=== PATIENT | male | born 1960 | race Caucasian/White ===

== ENCOUNTER 2022-11-22 13:11 | Outpatient (AMB) | payer OTHER, SELFPAY ==
--- NOTE | 2022-11-22 13:15 | MHC.OFFVIS ---
Intake Vital Signs 11/22/22 13:27 Height 6 ft 1 in Weight 256 lb BMI 33.8 BP 175/104 H Blood Pressure Location Lt brachial Position Sitting Pulse 84 Intake Visit Reasons: H Intake Note: Patient is seen in office for evaluation and treatment of a left inguinal hernia repair. Patient c/o: onset 4 months, feel a lump on the left groin, admits to discomfort and pain, denies diarrhea, constipation, nausea, vomit Relationship Management Lead Required: No Accompanied by: Self / Same As Patient Allergies No Known Allergies Allergy (Verified 11/22/22 13:26) Medication List - Last Reconciled 11/22/22 by Toni Liao MD atorvastatin 20 mg PO DAILY oxycodone ER (OxyContin) 80 mg PO TID HPI HPI Comments History of Present Illness Details 62-year-old male patient presenting with complaints of a lump in the left groin. He is uncertain how long list hernias been present but feels it has increased in size over the last 4 months. He denies associated nausea, vomiting, fever, chills, diarrhea, constipation or other associated symptoms. He reports a previous right inguinal hernia which was repaired approximately [address] [facility]. She denies any problems following the surgery. He also reports being on chronic pain medication for herniated disc, controlled by his primary care physician. The hernia is able to be reduced with light pressure or while in the supine position. Denies a history of incarceration of the hernia. [facility] Medical History (Updated 11/22/22 @ 13:42 by Toni Liao MD) Chronic pain Lumbar herniated disc Surgical History (Updated 11/22/22 @ 13:24 by DOLLY Linares) H/O right inguinal hernia repair Social History (Updated 11/22/22 @ 13:24 by DOLLY Linares) Alcohol intake: current Alcohol intake frequency: holidays/special occasions only Patient Tobacco Use Status: Never used Tobacco Review of Systems Const All systems reviewed & are unremarkable except as noted in HPI and below Denies chills, Denies fever(s), Denies headache(s), Denies poor appetite and Denies weakness ENT Denies headache(s) Card Denies chest pain, Denies irregular heart rhythm, Denies palpitations and Denies dyspnea Resp Denies cough, Denies excessive phlegm production and Denies dyspnea GI Reports as per HPI, Reports abdominal pain, Denies bloating, Denies change in bowel habits, Denies constipation, Denies heartburn, Denies diarrhea, Denies nausea and Denies vomiting Denies difficulty urinating and Denies urinary frequency Musc Reports back pain, Denies muscle weakness and Denies numbness Skin/Breast Denies changing lesions and Denies unusual bruising Neuro Denies headache(s), Denies numbness, Denies paresthesias and Denies weakness Psych Denies anxiety and Denies depression Endo Denies palpitations Shahab/Lymph Denies lymphadenopathy Physical Exam Const General: cooperative and no acute distress Nutritional Appearance: well nourished Orientation/consciousness: patient oriented x3 Limitations: no limitations HEENT Head: Yes normocephalic and Yes atraumatic Ears: hearing grossly normal bilaterally Resp Effort & Inspection: normal respiratory effort, no audible wheezes, no cough and no respiratory distress Cardio Jugular venous distension: no JVD GI Inspection: Yes normal to inspection and Yes Abdominal panniculus present Palpation (GI): Soft to palpation, nontender, no guarding, not rigid and Hernia present direct inguinal (Reducible left inguinal hernia) on the left Skin Other: Warm, dry, no rash Neuro General: patient oriented x3 Extrem General: Yes no clubbing, cyanosis or edema Assessment & Plan Assessment & Plan (1) Left inguinal hernia: Code(s): K40.90 - Unilateral inguinal hernia, without obstruction or gangrene, not specified as recurrent Plan 62-year-old male patient presenting with a large left inguinal hernia which is now symptomatic. I recommended a repair with mesh to be performed as a short-stay surgery. After review of the procedure, risks, and alternatives, he consents to a repair of the left inguinal hernia with mesh. I recommended no lifting greater than 10 lb for the 1st 4 weeks after the surgery. After 2 weeks he may be able to perform some light duty activity at work. Coding Level of Care Code New Pt Level 4 (45754) Diagnoses Left inguinal hernia K40.90
[2022-11-22 13:27] VITALS: BP 175/104; PULSE 84; BMI 33.8
== END 2022-11-22 13:37 | disposition home or self-care (01) ==
PROVIDERS: PCP Internal Medicine; Referring Provider Internal Medicine; Visit Provider Surgery
DX: K40.90 Unilateral inguinal hernia, without obstruction or gangrene, not specified as recurrent (principal)
CPT/HCPCS: 99204

== ENCOUNTER → 2022-11-22 13:11 | Outpatient (BNVA) | payer OTHER, SELFPAY | PROVIDERS: PCP Internal Medicine; Referring Provider Internal Medicine; Visit Provider Surgery | DX: K40.90 Unilateral inguinal hernia, without obstruction or gangrene, not specified as recurrent (principal) | CPT/HCPCS: 99202 ==

== ENCOUNTER 2022-12-12 07:31 | Day surgery (SDC) | payer OTHER, SELFPAY ==
[2022-12-07 07:15] VITALS: BMI 33.8
[2022-12-12] VITALS (7 sets, daily range): BP systolic 117–171; BP diastolic 78–99; PULSE 67–73; RESP 11–16; TEMP 36.1–36.3; O2SAT 90–97
--- NOTE | 2022-12-12 07:48 | HO.ANESPROP2 ---
Documented by User: Martha Vargas MD 12/12/22 07:50 [facility] Active Problems Active Problems: All Active Problems (Updated 12/07/22 @ 07:[address] RN) Left inguinal hernia (Acute) Lumbar herniated disc (Acute) Chronic pain (Acute) Past Medical History Medical History Bursitis Back pain Persistent insomnia Major depressive disorder Hyperlipidemia Chronic pain Lumbar herniated disc Surgical History Surgical History H/O right inguinal hernia repair Social History Social History Alcohol intake: current Alcohol intake frequency: holidays/special occasions only Patient Tobacco Use Status: Never used Tobacco Second Hand Smoke Exposure: No Use of substances other than those prescribed or required for medical reasons: Yes Are you DNR?: No Advance Directives: No Advance Directives Information Provided: Yes Advance Directives on File: No Meds Allergies Allergy/AdvReac Type Severity Reaction Status Date / Time No Known Allergies Allergy Verified 11/22/22 13:26 Home Medications Medication Instructions Recorded Confirmed Last Taken Type atorvastatin 20 mg tablet 20 mg PO DAILY 11/22/22 11/22/22 Unknown History oxycodone 80 mg tablet,crush 80 mg PO TID 11/22/22 11/22/22 Unknown History resistant,extended release 12 hr (OxyContin) Exam Exam Date and Time: December 12, 2022 0748 Height,Weight and Vital Signs: Height 6 ft 1 in Weight 116.12 kg Airway Neck ROM: Limited Documented by User: Justus Montana MD 12/12/22 09:08 [facility] Past Medical History Medical History Bursitis Back pain Persistent insomnia Major depressive disorder Hyperlipidemia Chronic pain Lumbar herniated disc Family History Family history of problems with anesthesia: No Surgical History Surgical History H/O right inguinal hernia repair History of Problems with Anesthesia: No Social History Social History Alcohol intake: current Alcohol intake frequency: holidays/special occasions only Patient Tobacco Use Status: Never used Tobacco Second Hand Smoke Exposure: No Use of substances other than those prescribed or required for medical reasons: Yes Are you DNR?: No Advance Directives: No Advance Directives Information Provided: Yes Advance Directives on File: No Meds Allergies Allergy/AdvReac Type Severity Reaction Status Date / Time No Known Allergies Allergy Verified 11/22/22 13:26 Home Medications Medication Instructions Recorded Confirmed Last Taken Type atorvastatin 20 mg tablet 20 mg PO DAILY 11/22/22 11/22/22 Unknown History oxycodone 80 mg tablet,crush 80 mg PO TID 11/22/22 11/22/22 Unknown History resistant,extended release 12 hr (OxyContin) Exam Airway Mallampati Class: II TM Dist: >3cm Heart: rrr Lungs: cta Assessment and Plan Assessment Anesthesia Assessment: Anesthesia Plan Discussed and Chart Reviewed Final Anesthetic Review Family History of Problems with Anesthesia: No History of Problems with Anesthesia: No NPO: Yes ASA Class: III Final Preanesthetic Review: No Changes in Pt Med Stat, Meds/Allgs Chart Reviewed, Consent Obtained/Reviewed and Anes Risks/Benef Reviewed Patient Risk: Intermediate Procedure Risk: Intermediate Anesthetic Plan Anesthetic Plan: Agree w/ Assess. and Plan Disposition: Standard PACU
[2022-12-12] MEDS: Lactated Ringers 1,000 ML 100 ML IVCONT (08:34)
--- NOTE | 2022-12-12 09:36 | MHC.SHP ---
Pre-Procedural Eval Section A Date of Service: 12/12/22 The patient is an INPATIENT: No Changes since office visit: Yes Patient answered all questions; No Cold of Flu in the past 2 weeks, No New Medical Problems and No Changes in Medication The History & Physical has been completed within 30 days and I have reviewed it.: Yes Section B Chief Complaint: Unilateral inguinal hernia, without obstruction Allergies: Allergies Allergy/AdvReac Type Severity Reaction Status Date / Time No Known Allergies Allergy Verified 11/22/22 13:26 Plan Diagnosis/Plan: Unchanged I have reviewed the history and physical and performed a pertinent physical examination on my patient. No changes have occurred unless specified. Time Spent With Patient Time: Total time managing care of this patient today ____ minutes.
--- NOTE | 2022-12-12 09:36 | W.PM.OPN ---
Operative Note Operative Note Date of Service: 12/12/22 Narrative: Preoperative diagnosis: Left inguinal hernia Postoperative diagnosis: same Procedure: repair of left inguinal hernia with mesh Surgeon: Toni Liao MD Instructional Designer: Diane Vargas PA-C Anesthesia: general LMA Indications for procedure: 62-year-old male patient presenting with a new left inguinal hernia and a previous history of right inguinal hernia repaired an outside institution. On examination patient found to have a lump in the left groin which increases with Valsalva maneuvers. Operative findings: Large indirect left inguinal hernia Specimen: hernia sac Estimated blood loss: 10 mL Complications: none Procedure details: patient was brought to the OR and placed in a supine position. After administering general anesthesia patient's abdomen was prepped with ChloraPrep and draped in a sterile fashion. A surgical time-out was called the consent confirmed. Patient received preoperative antibiotics and Venodyne boots were in place. Local anesthesia was infiltrated over the left inguinal ligament. Incision was then made parallel to the inguinal ligament. This carried out through subcutaneous tissue, past Cristina's fashion up to the external oblique aponeurosis. Additional local was placed below the external oblique aponeurosis. This was then incised with a scalpel wider with the Metzenbaum scissors. The spermatic cord was then dissected free from the surrounding well canal. This was retracted using a Troy drain. The floor of the inguinal canals found to be intact. Fibers of the cremaster muscle were then and a large hernia sac identified. This Was dissected down to the internal ring. the sac was opened and the contents reduced. Sac was then ligated above the internal ring and divided. This was sent as a specimen to pathology. Attention was then directed to the floor of the inguinal canal. Fibers of the internal oblique and transversalis aponeurosis were then incised between Allis clamps. The preperitoneal space was then entered. This was then widened using an open Ray-Catia sponge. A large extended PHS mesh was then obtained. This was deployed within the preperitoneal space. The overlay was then secured to the pubic tubercle, conjoined tendon, and shelving edge of the inguinal ligament using is 0 Polysorb suture. A slit was made in the mesh and the mesh wrapped around the spermatic cord at the internal ring. It was then secured to the shelving edge using the 0 Polysorb suture. Wounds were then irrigated with saline solution and suctioned dry. Hemostasis was assured using electrocautery. External oblique aponeurosis was then closed using a running 2-0 Polysorb suture. 6 mL of Zenrelef was then infiltrated below the external oblique aponeurosis. Cristina's fascia and dermis were then reapproximated using interrupted 3-0 Polysorb sutures. Skin was closed using a running subcuticular 4-0 Polysorb suture. Sterile dressings consisting of Steri-Strips, 2 x 2 gauze and Tegaderm were then applied. The patient tolerated the procedure well. Sponge, instrument, needle counts reported as correct. Patient was transferred to PACU in stable condition.
== END 2022-12-12 12:39 | disposition home or self-care (01) ==
PROVIDERS: PCP Internal Medicine; Visit Provider Surgery
PROC: (CPT 49505; principal; 2022-12-12 09:10)
DX: K40.90 Unilateral inguinal hernia, without obstruction or gangrene, not specified as recurrent (principal); G89.29 Other chronic pain; M51.26 Other intervertebral disc displacement, lumbar region; Z98.890 Other specified postprocedural states; Z79.899 Other long term (current) drug therapy
CPT/HCPCS: 49505; 88302; C1781; C9088; J0690; J2250; J3010

== ENCOUNTER → 2022-12-12 07:31 | Outpatient (BNV) | payer OTHER, SELFPAY | PROVIDERS: PCP Internal Medicine; Visit Provider Surgery | DX: K40.90 Unilateral inguinal hernia, without obstruction or gangrene, not specified as recurrent (principal) | CPT/HCPCS: 49505 ==

== ENCOUNTER 2022-12-22 10:03 | Outpatient (AMB) | payer OTHER, SELFPAY ==
--- NOTE | 2022-12-22 10:05 | MHC.OFFVIS ---
Intake Vital Signs 12/22/22 10:13 Height 6 ft 1 in Weight 250 lb BMI 33.0 BP 133/88 Blood Pressure Location Lt brachial Position Sitting Intake Visit Reasons: S/P open LIH w/mesh Intake Note: Patient is seen in office for post op assessment post left inguinal hernia repair. Patient c/o: sore and tender for the first couple of days, no concerns at the time of visit Award Clerk Required: No Accompanied by: Self / Same As Patient Allergies No Known Allergies Allergy (Verified 12/22/22 10:12) HPI HPI Comments History of Present Illness Details 62-year-old male patient returning 1 week following repair of a left inguinal hernia with mesh 12/12/2022. He feels well and denies any ongoing symptoms of nausea, vomiting, diarrhea or constipation. He notes some swelling and soreness at the incision but generally this is much improved from prior to the surgery. [facility] Medical History Bursitis Back pain Persistent insomnia Major depressive disorder Hyperlipidemia Chronic pain Lumbar herniated disc Surgical History History of left inguinal hernia repair (12/12/22) H/O right inguinal hernia repair Social History Alcohol intake: current Alcohol intake frequency: holidays/special occasions only Patient Tobacco Use Status: Never used Tobacco Second Hand Smoke Exposure: No Physical Exam Const General: healthy appearing Nutritional Appearance: well nourished Orientation/consciousness: patient oriented x3 Limitations: no limitations Resp Effort & Inspection: normal respiratory effort, no audible wheezes, no cough and no respiratory distress GI Other: Incision in the left groin is clean, dry, and intact without redness or discharge. There is some swelling extending down into the scrotum but no evidence of hematoma or seroma. Neuro General: patient oriented x3 Extrem General: Yes no clubbing, cyanosis or edema Assessment & Plan Assessment & Plan (1) Left inguinal hernia: Code(s): K40.90 - Unilateral inguinal hernia, without obstruction or gangrene, not specified as recurrent Plan Status post repair of a left inguinal hernia with mesh. He should avoid lifting greater than 10 lb and will return approximately 2 weeks for follow-up examination. Coding Level of Care Code Global (07710) Diagnoses Left inguinal hernia K40.90
[2022-12-22 10:13] VITALS: BP 133/88; BMI 33.0
== END 2022-12-22 10:23 | disposition home or self-care (01) ==
PROVIDERS: PCP Internal Medicine; Visit Provider Surgery
DX: K40.90 Unilateral inguinal hernia, without obstruction or gangrene, not specified as recurrent (principal)
CPT/HCPCS: 99024

== ENCOUNTER → 2022-12-22 10:03 | Outpatient (BNVA) | payer OTHER, SELFPAY | PROVIDERS: PCP Internal Medicine; Visit Provider Surgery ==

== ENCOUNTER 2023-01-03 13:56 | Outpatient (AMB) | payer OTHER, SELFPAY ==
--- NOTE | 2023-01-03 14:23 | MHC.OFFVIS ---
Intake Vital Signs 01/03/23 14:35 Height 6 ft 1 in Weight 255 lb BMI 33.6 BP 117/74 Blood Pressure Location Lt brachial Position Sitting Pulse 73 Intake Visit Reasons: 2 wk follow up open LIH w/mesh Intake Note: Patient is seen in office for 2 weeks follow up visit, post left inguinal hernia repair. Patient c/o: denies any concerns at the time of visit Director Of Counseling Required: No Accompanied by: Self / Same As Patient Allergies No Known Allergies Allergy (Verified 01/03/23 14:36) HPI HPI Comments History of Present Illness Details 62-year-old male patient returning 1 month following repair of a left inguinal hernia with mesh. He feels well and denies any ongoing incisional pain. He denies nausea, vomiting, fever or chills. PFSH Medical History Bursitis Back pain Persistent insomnia Major depressive disorder Hyperlipidemia Chronic pain Lumbar herniated disc Surgical History History of left inguinal hernia repair (12/12/22) H/O right inguinal hernia repair Social History Alcohol intake: current Alcohol intake frequency: holidays/special occasions only Patient Tobacco Use Status: Never used Tobacco Second Hand Smoke Exposure: No Physical Exam Vital Signs: Last Vital Signs Pulse 73 01/03/23 14:35 BP 117/74 01/03/23 14:35 BMI result Body Mass Index 33.6 Const General: healthy appearing Nutritional Appearance: well nourished Orientation/consciousness: patient oriented x3 Limitations: no limitations Resp Effort & Inspection: normal respiratory effort, no audible wheezes, no cough and no respiratory distress GI Other: Incision in the left groin is clean, dry, and intact without redness or discharge. No hernias noted with Valsalva maneuvers. Neuro General: patient oriented x3 Extrem General: Yes no clubbing, cyanosis or edema Assessment & Plan Assessment & Plan (1) Left inguinal hernia: Code(s): K40.90 - Unilateral inguinal hernia, without obstruction or gangrene, not specified as recurrent Plan Patient returns following repair of a left inguinal hernia with mesh. He tolerated the procedure well and his wounds are well healed. He should follow up as needed. He may resume normal activity without restrictions. Coding Level of Care Code Global (38391) Diagnoses Left inguinal hernia K40.90
[2023-01-03 14:35] VITALS: BP 117/74; PULSE 73; BMI 33.6
== END 2023-01-03 14:47 | disposition home or self-care (01) ==
PROVIDERS: PCP Internal Medicine; Visit Provider Surgery
DX: K40.90 Unilateral inguinal hernia, without obstruction or gangrene, not specified as recurrent (principal)
CPT/HCPCS: 99024

== ENCOUNTER → 2023-01-03 13:56 | Outpatient (BNVA) | payer OTHER, SELFPAY | PROVIDERS: PCP Internal Medicine; Visit Provider Surgery | DX: K40.90 Unilateral inguinal hernia, without obstruction or gangrene, not specified as recurrent (principal) ==

== ENCOUNTER 2023-05-23 12:19 | Outpatient (AMB) | payer OTHER, SELFPAY ==
--- NOTE | 2023-05-23 12:49 | A.OFFVIS_ITS ---
Intake Vital Signs 3 05/23/23 12:58 Height 6 ft 1 in Intake Visit Reasons: Skin mass of back Intake Note: Pt states he's had it about a year. 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 This is been present for several years and is gradually increasing in size. He denies any fever, chills, bleeding or discharge. He denies a previous history of infection. He is requesting excision of this lesion. [facility] Medical History Bursitis Back pain Persistent insomnia Major depressive disorder Hyperlipidemia Chronic pain Lumbar herniated disc Surgical History History of left inguinal hernia repair (12/12/22) H/O right inguinal hernia repair Social History Alcohol intake: current Alcohol intake frequency: holidays/special occasions only Patient Tobacco Use Status: Never used Tobacco Second Hand Smoke Exposure: No Review of Systems Const All systems reviewed & are unremarkable except as noted in HPI and below Physical Exam Const General: cooperative and no acute distress Nutritional Appearance: well nourished Orientation/consciousness: patient oriented x3 Limitations: no limitations HEENT Head: Yes normocephalic and Yes atraumatic Ears: hearing grossly normal bilaterally Resp Effort & Inspection: normal respiratory effort, no audible wheezes, no cough and no respiratory distress Cardio Jugular venous distension: no JVD GI Inspection: Yes normal to inspection Back/Spine/Pelvis Back/spine/pelvis image: 2 1. 3 cm epidermal inclusion cyst in the mid back with no evidence of infection. Skin Other: Warm, dry, no rash Neuro General: patient oriented x3 Extrem General: Yes no clubbing, cyanosis or edema Assessment & Plan Assessment & Plan (1) Epidermal inclusion cyst: Code(s): L72.0 - Epidermal cyst Plan 63-year-old male patient presenting with an enlarging epidermal inclusion cyst. On examination he has a 3 cm noninfected epidermal inclusion cyst in the mid back. I recommended an excision under local which could be performed in the office. After discussion of the procedure, risks, and alternatives, he consents to the surgery. Coding Level of Care Code New Pt Level 4 (04723) Diagnoses Epidermal inclusion cyst L72.0
[2023-05-23 12:58] VITALS: BP 124/70; PULSE 68; BMI 33.7
== END 2023-05-23 13:12 | disposition home or self-care (01) ==
PROVIDERS: PCP Internal Medicine; Visit Provider Surgery
DX: L72.0 Epidermal cyst (principal)
CPT/HCPCS: 99214

== ENCOUNTER → 2023-05-23 12:19 | Outpatient (BNVA) | payer OTHER, SELFPAY | PROVIDERS: PCP Internal Medicine; Visit Provider Surgery | DX: L72.0 Epidermal cyst (principal) | CPT/HCPCS: 99212 ==

== ENCOUNTER 2024-10-17 14:19 | Outpatient (AMB) | payer MEDICAID, SELFPAY ==
--- OUTSIDE RECORDS SUMMARY | 2024-10-17 14:26 | XMS_ITS | Data Portability ---
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 [address], [place], [address] , [facility] 6 06:36:42 Disorder of hair AND/OR hair follicle Completed 201301/27/2014 RECORDED 08/07/19 14 3:19PM BY PATRIZIA ARGUELLES MA, OFFICE VISIT Tirso Fisher MD [address] [address], [place], [address] , [facility] 6 06:36:42 Adult health examinat ion Completed 201301/27/2014 RECORDED 08/07/19 14 3:19PM BY PATRIZIA ARGUELLES MA, OFFICE VISIT Tirso Fisher MD [address] [address], [place], [address] , [facility] 6 06:36:42 Essentia l hyperten sharmin [id number] Completed 201301/27/2014 IMPRESSI ON: HE WAS GIVEN A HANDOUT ON HOW TO LOWER THE BLOOD PRESSURE . IF THIS IS ELEVATED NEXT VISIT WE WILL TALK ABOUT MEDS SINCE IT WOULD BE 3 TIMES IN A ROW.; RECORDED 08/07/19 14 4:11PM BY TIRSO ATKINSON MD, OFFICE VISIT Tirso Fisher MD [address] [address], [place], [address] , [facility] 6 06:36:42 Tobacco user [id number] Completed 201301/27/2014 RECORDED 10/03/19 14 2:00PM BY STEVEN MENDOZA I, OFFICE VISIT Tirso Fisher MD [address] [facility] [address], [place], [address] , [facility] 6 06:36:42 Blood chemistr y outside referenc e range [id number] Completed 201311/04/2013 RECORDED 10/03/19 14 2:00PM BY GURPREET HARRIS ON/PRASHANT Fisher MD [address] [address], [place], [address] , [facility] 6 06:36:42 Benign neoplasm of orophary nx 23286699 Completed 201311/04/2013 RECORDED 10/03/19 14 2:00PM BY GURPREET HARRIS ON/PRASHANT Fisher MD [address] [address], [place], [address] , [facility] 6 06:36:42 Impotenc e of organic origin Completed 201311/04/2013 RECORDED 10/03/19 14 2:00PM BY GURPREET HARRIS ON/PRASHANT Fisher MD [address] [address], [place], [address] , [facility] 6 06:36:42 Disorder of hair AND/OR hair follicle Completed 201311/04/2013 RECORDED 10/03/19 14 2:00PM BY GURPREET HARRIS ON/ADDEN DUM Tirso Fisher MD [address] [facility] [address], [place], [address] , [facility] 6 06:36:42 Adult health examinat ion Completed 201311/04/2013 RECORDED 10/03/19 14 2:00PM BY STEVEN MENDOZA I, ANNOTATI ON/ Tirso Fisher MD [address] [facility] [address], [place], [address] , [facility] 6 06:36:42 Essracheal l hyperten sharmin [id number] Completed 201311/04/2013 IMPRESSI ON: HE WAS GIVEN A HANDOUT ON HOW TO LOWER THE BLOOD PRESSURE . IF THIS IS ELEVATED NEXT VISIT WE WILL TALK ABOUT MEDS SINCE IT WOULD BE 3 TIMES IN A ROW.; RECORDED 10/03/19 14 8:48PM BY TIRSO ATKINSON MD, ANNOTATI ON/ Tirso Fisher MD [address] [facility] [address], [place], [address] , [facility] 6 06:36:42 Hyperlip idemia 82881658 Active 2016 Tirso Fisher MD [address] [facility] [address], [place], [address] , [facility] 2 14:23:51 Major depressi ve disorder 549174251 Active 2019 Not Available [facility] 1 10:09:32 Bursitis of olecrano n of left elbow 60569704164 9101 Active 2021 Tirso Fisher MD [address] [facility] [address], [place], [address] , [facility] 2 14:19:25 Left inguinal hernia 474500090 Active 2022 Tirso Fisher MD [address] [address], [place], [address] , [facility] 3 18:38:12 Epidermo id cyst 787202499 Active 2023 On back. Schedule d for surgery Tirso Fisher MD [address] [facility] [address], [facility] [place], [address] , [facility] 4 20:45:31 Problem Notes None recorded. Procedures Surgical History Date Name Laterality Status Provider Name and Address Organization Details Recorded Time 5 Chronic Pain Assessment completed Praveena Sesay MA [facility] 09/13/2024 10:25:48 5 Chronic Pain Assessment completed Kanchan Barragan MA [facility] 06/18/2024 14:11:53 5 Chronic Pain Assessment completed Kanchan Barragan MA [facility] 05/14/2024 13:48:02 4 Chronic Pain Assessment completed Praveena Sesay MA [facility] 02/15/2024 10:47:32 4 Chronic Pain Assessment completed Kanchan Barragan MA [facility] 11/08/2023 10:29:47 4 Chronic Pain Assessment cancelled Praveena Sesay MA [facility] 07/18/2023 13:55:25 4 Chronic Pain Assessment completed Jeanna Flores MA [facility] 04/19/2023 11:25:52 3 Chronic Pain Assessment completed Jeanna Flores MA [facility] 01/18/2023 13:31:14 3 repair of left inguinal hernia completed Araceli Lopez [facility] 12/13/2022 12:02:57 3 Chronic Pain Assessment completed Katina Kwon MA [facility] 10/19/2022 16:12:03 3 Chronic Pain Assessment completed Katina Kwon MA [facility] 06/08/2022 12:53:03 2 Chronic Pain Assessment completed Katina Kwon MA [facility] 02/07/2022 11:25:05 2 Chronic Pain Assessment completed Katina Kwon MA [facility] 11/24/2021 13:31:40 2 Chronic Pain Assessment completed Katina Kwon MA [facility] 08/09/2021 14:07:11 2 Chronic Pain Assessment completed Katina Kwon MA [facility] 05/11/2021 13:50:22 1 Chronic Pain Assessment completed Patrizia Arguelles MA [facility] 11/11/2020 14:14:12 1 Chronic Pain Assessment completed Praveena Sesay MA [facility] 05/12/2020 14:01:21 0 Chronic Pain Assessment completed Priti Marinelli MA [facility] 02/18/2020 13:33:18 0 Chronic Pain Assessment completed Steven Cunha [facility] 07/18/2019 09:25:48 0 Chronic Pain Assessment completed Steven Cunha [facility] 04/29/2019 13:30:08 9 Chronic Pain Assessment completed Steven Cunha [facility] 01/29/2019 13:51:27 9 Chronic Pain Assessment completed Steven Cunha [facility] 10/30/2018 13:47:40 9 Chronic Pain Assessment completed Steven Cunha [facility] 05/01/2018 10:10:45 8 Chronic Pain Assessment completed Steven Cunha [facility] 10/30/2017 10:32:32 8 Chronic Pain Assessment completed Steven Cunha [facility] 07/10/2017 09:10:58 8 Chronic Pain Assessment completed Steven Cunha [facility] 04/03/2017 13:14:28 7 Chronic Pain Assessment completed Steven Alphonse [facility] 01/03/2017 13:51:38 7 Chronic Pain Assessment completed Steven Bernabearchie [facility] 10/06/2016 10:36:29 7 Chronic Pain Assessment completed Devendrapierrekannan Puente [facility] 03/31/2016 11:41:46 6 Chronic Pain Assessment completed Praveena Sesay MA [facility] 10/01/2015 10:02:13 7 Rpr ing hernia init blocked completed Triny fuentes MA [facility] 10/01/2015 09:53:42 Imaging Results None recorded. Procedure Notes None recorded. Medical Equipment None Reported. Allergies No known drug allergies Medications Name Sig Start Date Stop Date Status Note LastModified by Organization Details LastModified Time simvastat in 40 mg tabs active Not Available Not Available Not Available Prescript ion - Prior Authoriza tion Request active Not Available Not Available Not Available oxycontin 80 mg t12a active Not Available Not Available Not Available fentanyl 50 mcg/hr transderm al patch Apply 1 patch every 72 hours by transder mal route for 30 days. 12/22 completed Not Available Not Available Not Available atorvasta tin 20 mg tablet TAKE 1 TABLET BY MOUTH EVERYDAY AT BEDTIME 2022 active Not Available Not Available Not Avai lable ibuprofen 200 mg capsule THREE TIMES DAILY, NEEDED 07/26 completed RECORDED 07/27/19 13 9:34AM BY TIRSO ATKINSON MD, MEDICATI ON AUTO-ZION CTIVATIO N; Not Available Not Available Not Available oxycodone ER 40 mg tablet,ex tended release,1 2 hr THREE TIMES DAILY 07/08 completed RECORDED 08/11/19 10 9:01AM BY TIRSO ATKINSON MD, MEDICATI ON AUTO-ZION CTIVATIO N;SCRIPT #3 OF 3; DO NOT FILL BEFORE 08/08/09 Not Available Not Available Not Available simvastat in 40 mg tablet Take 1 tablet every day by oral route for 90 days. 07/07 completed refill request Not Available Not Available Not Available oxycodone -acetamin ophen 5 mg-325 mg tablet DAILY PRN 05/25 completed RECORDED 06/27/19 12 10:55AM BY STEVEN MENDOZA I, MEDICATI ON AUTO-ZION CTIVATIO N; Not Available Not Available Not Available fentanyl 100 mcg/hr transderm al patch APPLY 1 PATCH TOPICALL Y EVERY 72 HOURS 12/22 completed Not Available Not Available Not Available morphine ER 60 mg tablet,ex tended release TAKE 1 TABLET BY MOUTH EVERY 12 HOURS FOR 30 DAYS 09/09 completed Not Available Not Available Not Available docusate sodium 100 mg capsule Take 1 capsule every day by oral route for 90 days, for constipa tion. 2024 active Not Available Not Available Not Avai lable gabapenti n 300 mg capsule Take 1 capsule every day by oral route at bedtime. 03/31 completed Not Available Not Available Not Available diclofena c sodium 75 mg tablet,de layed release TWO TIMES DAILY, NEEDED 02/17 completed RECORDED 04/23/19 14 8:39PM BY TIRSO ATKINSON MD, MEDICATI ON AUTO-ZION CTIVATIO N; Not Available Not Available Not Available OxyContin 80 mg tablet,ex tended release Take 1 tablet 3 times a day by oral route for 30 days. 02/26 completed Not Available Not Available Not Available Nasonex 50 mcg/actua tion [place] DAILY 09/21 completed RECORDED 12/04/19 10 10:13AM BY TIRSO ATKINSON MD, MEDICATI ON AUTO-ZION CTIVATIO N; Not Available Not Available Not Available dicloxaci llin 250 mg capsule DAILY 11/29 completed RECORDED 12/11/19 09 10:23AM BY TONYA Stark MD, MEDICATI ON AUTO-ZION CTIVATIO N; Not Available Not Available Not Available MS Contin 100 mg tablet,ex tended release THREE TIMES DAILY 07/04 completed RECORDED 07/30/19 14 3:25PM BY TIRSO ATKINSON MD, MEDICATI ON AUTO-ZION CTIVATIO N; Not Available Not Available Not Available mometason e 0.1 % topical cream TWO TIMES DAILY 2011 active RECORDED 10/03/19 14 2:00PM BY STEVEN MENDOZA I, OFFICE VISIT; Not Available Not Available Not Available albuterol (refill) 90 mcg/actua tion aerosol inhaler FOUR TIMES DAILY, NEEDED 10/14 completed RECORDED 12/04/19 10 10:13AM BY TIRSO ATKINSON MD, MEDICATI ON AUTO-ZION CTIVATIO N; Not Available Not Available Not Available oxycodone ER 60 mg tablet,ex tended release,1 2 hr THREE TIMES DAILY 05/02 completed RECORDED 05/02/19 14 11:30AM BY TIRSO ATKINSON MD, OFFICE VISIT;TH IS ORDER DISCONTI NUED PER [facility] N. Not Available Not Available Not Available oxycodone 10 mg tablet 8 tablets per day. 2 at the start of the day, 2 four hours later, then 1 every 4 hours. 07/08 completed [facility] left office before signing script and pt will be out of meds. Can you refill just the 1st script? Not Available Not Available Not Available OxyContin 80 mg tablet,cr ush resistant ,extended release Take 1 tablet twice a day by oral route for 30 days. 2024 active PA APPROVED FOR 09/03/24 - 5, NEEDS NEW PA Not Available Not Available Not Available Narcan 4 mg/actuat ion nasal spray one spray in one nostril, may repeat dose every 2-3min until pt responsi ve or EMS arrives active Not Available Not Available No t Available Xtampza ER 36 mg capsule sprinkle Take 1 capsule every 12 hours by oral route for 30 days, for chronic pain. 06/19 completed Not Available Not Available Not Available Vitals Date Recorded Body height Body mass index (BMI) Body weight Heart rate Oxygen saturation Oxygen saturation in Arterial blood by Pulse oximetry Body temperature Systolic And Diastolic Provider Name and Address Organization Details Last Updated DateTime 5 181.61 cm 34.1 kg/m2 091889. 91 g 86 /min 95 % 95 % 98.6 [degF] 125/83 mm[Hg] Kan[facility]agan [facility] 5 13:46:56 Date Recorded Body height Body mass index (BMI) Body weight Heart rate Oxygen saturation Oxygen saturation in Arterial blood by Pulse oximetry Body temperature Systolic And Diastolic Provider Name and Address Organization Details Last Updated DateTime 5 181.61 cm 34.9 kg/m2 749129. 46 g 102 /min 95 % 95 % 98.3 [degF] 144/98 mm[Hg] Kanchan Barragan [facility] 5 14:10:31 Date Recorded Body height Body mass index (BMI) Body weight Oxygen saturation Oxygen saturation in Arterial blood by Pulse oximetry Heart rate Body temperature Systolic And Diastolic Provider Name and Address Organization Details Last Updated DateTime 5 181.61 cm 35.8 kg/m2 977131. 12 g 98 % 98 % 70 /min 97.8 [degF] 133/84 mm[Hg] Praveena Sesay [facility] 5 10:23:03 Date Recorded Body height Body mass index (BMI) Body weight Heart rate Oxygen saturation Oxygen saturation in Arterial blood by Pulse oximetry Body temperature Systolic And Diastolic Provider Name and Address Organization Details Last Updated DateTime 4 181.61 cm 32.6 kg/m2 670228. 39 g 82 /min 95 % 95 % 98.5 [degF] 134/92 mm[Hg] Kanchan Barragan MA [facility] 4 10:27:56 Date Recorded Body height Body mass index (BMI) Body weight Oxygen saturation Oxygen saturation in Arterial blood by Pulse oximetry Heart rate Body temperature Systolic And Diastolic Provider Name and Address Organization Details Last Updated DateTime 4 181.61 cm 33.6 kg/m2 822719. 34 g 96 % 96 % 79 /min 97.9 [degF] 127/81 mm[Hg] Praveena Sesay MA [facility] 4 10:45:33 Social History Question Answer Notes LastModified by Organizat ion Details LastModified Time Tobacco Smoking Status Former Smoker Not Available [facility] 01/28/2020 03:36:38 Do You Have An Advance Directive? Yes 07/30/2014 [id number] Information not available 01/28/2020 Is Blood Transfusion Acceptable In An Emergency? Yes [id number] Information not available 01/28/2020 What Is Your Level Of Caffeine Consumption? Heavy Coffee, Occasional Red Bull Information not available 10/19/2022 How Much Tobacco Do You Chew? None [id number] Information not available 01/28/2020 In The 14 Days Before Symptom Onset, Have You Had Close Contact With A Laboratory-confi rmed COVID-19 While That Case Was Ill? No [id number] Information not available 01/28/2020 In The 14 Days Before Symptom Onset, Have You Had Close Contact With A Person Who Is Under Investigation For COVID-19 While That Person Was Ill? No [id number] Information not available 01/28/2020 Have You Been To An Area Known To Be High Risk For COVID-19? No [id number] Information not available 01/28/2020 What Type Of Diet Are You Following? REGULAR Low Carb High Protein [id number] Information not available 01/28/2020 Which Illicit Or Recreational Drugs Have You Used? None [id number] Information not available 01/28/2020 When Did You Quit Smoking? 16+yearssi ncelastcig arette Information not available 11/11/2020 Live Alone Or With Others? Alone [email or web address] Information not available 11/21/2019 Do You Take Precautions To Prevent Distracted Driving? Yes Etaoshidionisio Information not available 07/06/2015 How Often Do You Need To Have Someone Help You When You Read Instructions, Pamphlets, Or Other Written Material From Your Doctor Or Pharmacy? Never VeedMezahidaultiliana Information not available 07/06/2015 Have You Served In The ? No [employer] Information not available 07/07/2016 Have You Or Anyone In Your Household Had Any Of The Following Symptoms In The Last 14 Days: Sore Throat, Cough, Chills, Body Aches For Unknown Reasons, Shortness Of Breath For Unknown Reasons, Loss Of Smell, Loss Of Taste, Fever At Or Greater Than 100 Degrees Fahrenheit? No Information not available 11/21/2019 Are You Or Anyone In Your Household A Health Care Provider Or Emergency Responder? No Information not available 11/21/2019 To The Best Of Your Knowledge Have You Been In Close Proximity To Any Individual Who Tested Positive For COVID-19? No Information not available 11/21/2019 Have You Recently Traveled To A COVID-19 High Risk Area Or Gathering In The Last 10 Days? No Information not available 11/11/2020 What Was The Date Of Your Most Recent Tobacco Screening? 10/19/2022 Information not available 10/19/2022 How Many Children Do You Have? 2 [id number] Information not available 01/28/2020 What Is Your Current Pack Years? 30ormorepa ckyears Information not available 11/11/2020 Seat Belts Used Routinely Yes [email or web address] Information not available 07/06/2015 Are You Sexually Active? No [id number] Information not available 01/28/2020 Smoke Alarm In Home Yes Information not available 07/06/2015 At What Age Did You Start Smoking Tobacco? 21 Information not available 11/11/2020 Are You Passively Exposed To Smoke? No [email or web address] Information not available 10/01/2015 Do You Use Sunscreen Routinely? Yes [id number] Information not available 01/28/2020 How Many Years Have You Smoked Tobacco? 30 Information not available 11/11/2020 Sex: Unknown Functional Status Question Answer Note LastModified by Organizat ion Details LastModified Time Do you use any illicit or recreational drugs? No Information not available 11/11/2020 Do you or have you ever used any other forms of tobacco or nicotine? No Information not available 11/11/2020 What is your level of alcohol consumption? Occasional [id number] Information not available 01/28/2020 Do you or have you ever used smokeless tobacco? Never used smokeless tobacco Information not available 02/18/2020 Are you currently employed? No [id number] Information not available 01/28/2020 Are you able to walk? YESWOREST Information not available 11/11/2020 Are you able to care for yourself? 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 Never used electronic cigarettes [email or web address] Information not available 02/18/2020 What is your exercise level? None [id number] Information not available 01/28/2020 Mental Status None recorded. Family History Relationship Description Onset Age of this Age Resolved Age Notes LastModified by Organization Details LastModified Time Father Father 85 evi Not available 10/25 11:11:28 Notes:He is estranged from h is family and has not had any contact in years. Medical History Condition Response Coronary Artery Disease N Other N Gout N Kidney Stones N Blood Diseases N Hyperthyroidism N Breast Cancer N mrsa exposure N Hypothyroidism N Depression N COPD N Lung Disease N Developmental or Behavioral Disorders N Defects or Inherited Disease N Breast Problem N Anesthesia Complications N Headaches/Migraines N Varicose Veins N Anxiety Disorder N Muscle, Joint, or Bone Problems N Obesity N Vision or Eye Problems N Arthritis N Head Injury/Concussion N Polyps N Infertility N Mental Disorder N Congenital Anomalies N Acid Reflux (GERD) N Cancer N Stroke N ADHD N Endometriosis N High Cholesterol Y Liver Disease N Headaches N Fibromyalgia N Kidney Disease N Heart Problems N Ear or Hearing Problems N Hospitalizations N Thyroid Problems N GI Problems N Developmental Delay N Acne N Skin Problems N Eating Disorder N Anemia N Constipation N Bladder Problems N Mental Illness N Ovarian Cancer N Diabetes N Bedwetting N Blood Transfusions N Seizures/Epilepsy N Heart Problems/Murmur N Tuberculosis N AIDS/HIV N Congestive Heart Failure (CHF) N Eczema N Diverticulitis N Abuse/Domestic Violence N Asthma N Allergies N Reflux/GERD N Hepatitis N Heart Disease N Pulmonary Embolism N Hypertension N Chicken Pox N Autism Spectrum Disorder (ASD) N Osteoporosis N Immunizations Vaccine Type Date Status Note Provider Nam e and Address Organization Details Recorded Time COVID-19, mRNA, LNP-S, PF, 100 mcg/0.5mL dose or 50 mcg/0.25mL dose 1 completed Katina Doyle, MA null, [facility] 02/07/2022 11:19:20 COVID-19, mRNA, LNP-S, PF, 100 mcg/0.5mL dose or 50 mcg/0.25mL dose 1 completed LINSEY Patel, [facility] 08/09/2021 14:00:42 Tdap 7 completed Not Available [facility] 04/13/2019 02:21:46 Influenza, split virus, quadrivalent , PF 0 cancelled patient objection Priti Marinelli MA null, [facility] 02/18/2020 13:20:20 Tdap 7 completed Leonora dumont, [facility] 10/30/2020 11:48:43 Past Encounters Encounter ID Performer Location Encounter Start Date Encounter Closed Date Diagnosis/Indication Diagnosis SNOMED-CT Code Diagnosis ICD10 Code Diagnosis Note [id number] auto[address]Comm erce [address] [facility] [place] [address] 08/28/2006 00:00:00 [id number] autoEComm erce [address] [facility] [place] [address] 09/28/2006 00:00:00 [id number] autoEComm erce [address] [facility] [place] [address] 01/02/2007 00:00:00 [id number] [employer] [address] [facility] [place] [address] 04/04/2007 00:00:00 [id number] [employer] [address] [facility] [address] [place] [address] 2 07/05/2007 00:00:00 [id number] [employer] [address] [facility] [place] [address] 2 01/09/2008 00:00:00 [id number] [employer]ce [address] [facility] [address] [place] [address] 2 04/28/2008 00:00:00 [id number] [employer] [address] [place] [address] 2 07/30/2008 00:00:00 73511 [employer] [address] [address] [place] [address] 2 10/30/2008 00:00:00 [id number] [employer] [address] [address] [place] [address] 2 02/11/2009 00:00:00 [id number] [employer] [address] [address] [place] [address] 2 05/14/2009 00:00:00 [id number] [employer] erce [address] [facility] [address],[place] [address] [place] [address] 2 09/14/2009 00:00:00 [id number] [employer]ce [address] [facility] [address] [place] [address] 01/20/2010 00:00:00 [id number] [employer]ce [address] [facility] [address],[place] [address] [place] [address] 2 05/25/2010 00:00:00 [id number] [employer]ce [address] [facility] [address] [address] [place] [address] 2 09/06/2010 00:00:00 [id number] [employer]ce [address] [facility] [address] [place] [address] 2 03/29/2011 00:00:00 81774 [employer] [address] [facility] [address],[place] [address] [place] [address] 2 06/27/2011 00:00:00 [id number] [employer]ce [address] [facility] [address],[place] [address] [place] [address] 2 07/27/2011 00:00:00 [id number] [employer]ce [address] [facility] [address] [address] [place] [address] 2 10/26/2011 00:00:00 [id number] [employer] erce [address] [facility] [address] [address] [place] [address] 2 01/30/2012 00:00:00 78622 [employer] [address] [address] [place] [address] 2 04/30/2012 00:00:00 25102 [employer] [address] [address] [place] [address] 2 07/19/2012 00:00:00 [id number] [employer] erce [address] [facility] [address] [address] [place] [address] 2 10/29/2012 00:00:00 [id number] [employer] [address] [facility] [address] [address] [place] [address] 2 01/17/2013 00:00:00 [id number] [employer] [address] [facility] [address],[place] [address] [place] [address] 2 01/28/2013 00:00:00 07739 [employer] erce [address] [facility] [address] [place] [address] 2 05/02/2013 00:00:00 75579 [employer] [address] [facility] [address] [place] [address] 2 08/06/2013 00:00:00 50118 [employer] [address] [facility] [address] [place] [address] 2 10/02/2013 00:00:00 [id number] Tirso Fisher MD Main Office [address] [address] [place], [place] [address] 01/27/2014 14:39:52 01/27/2014 15:52:54 Chronic pain syndrome 127067946 Low back pain 713035721 Pure hypercholesterolemia 639517582 [id number] Tirso Fisher MD Main Office [address] [address] [place], [place] [address] 04/30/2014 10:53:26 04/30/2014 11:51:05 Adult health examination 161736286 we discussed colonoscop y but he refused; he agreed to do the stool cards. Chronic pain syndrome 702434482 Pure hypercholesterolemia 287704427 Low back pain 362208346 [id number] Tirso Fisher MD Main Office [address] [address] [place] [address] 07/30/2014 11:15:11 07/30/2014 12:02:38 Chronic pain syndrome 286931253 Low back pain 557655688 Contact dermatitis 94118474 latex glove allergy; he will change gloves and use OTC cortisone. [id number] Tirso Fisher MD Main Office [address] [address] [place] [address] 11/26/2014 10:37:06 11/26/2014 11:11:44 Pure hypercholesterolemia 220052957 Chronic pain syndrome 785207508 Olecranon bursitis 280995397 Screening for malignant neoplasm of colon 430073317 [id number] Tirso Fisher MD Main Office [address] [address] [place] [address] 04/01/2015 10:06:40 04/01/2015 11:23:52 Pure hypercholesterolemia 839501795 E78.0 Chronic pain syndrome 37 1378542 G89.4 no changes in mgmt. He has been stable. Low back pain 112741023 M54.5 [id number] Tirso Fisher MD Main Office [address] [address] [place] [address] 07/06/2015 14:19:34 07/06/2015 15:44:30 Adult health examination 744896494 Z00.00 we discussed colonoscop y but he refused; he agreed to do the stool cards. Pure hypercholesterolemia 517533126 E78.0 Good control with current meds Chronic pain syndrome 37 6162540 G89.4 no changes in mgmt. He has been stable. Low back pain 232434885 M54.5 [id number] Tirso Fisher MD Main Office [address] [address] [place] [address] 10/01/2015 09:46:06 10/01/2015 10:35:08 Chronic pain syndrome 976622630 G89.4 LBP; has a contract and on chronic narcotics Pure hypercholesterolemia 983047446 E78.0 Low back pain 889940367 M54.5 [id number] Tirso Fisher MD Main Office [address] [address] [place] [address] 12/31/2015 10:53:03 12/31/2015 11:54:03 Chronic pain syndrome 778550522 G89.4 LBP; has a contract and on chronic narcotics Insomnia 987668543 G47.0 0 [id number] Tirso Fisher MD Main Office [address] [place] [address] 03/31/2016 11:18:06 03/31/2016 12:11:16 Chronic pain syndrome 382619716 G89.4 LBP; has a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
[2024-10-17 14:28] VITALS: BP 126/92; PULSE 78; RESP 18; O2SAT 96; BMI 33.2
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
== END 2024-10-17 14:52 | disposition home or self-care (01) ==
LOC: HO.PMC 14:20
PROVIDERS: PCP Internal Medicine; Referring Provider Internal Medicine; Visit Provider Anesthesiology
DX: M46.1 Sacroiliitis, not elsewhere classified (principal); M53.3 Sacrococcygeal disorders, not elsewhere classified
CPT/HCPCS: 99203

== ENCOUNTER → 2024-10-17 14:19 | Outpatient (BNVA) | payer MEDICAID, SELFPAY | PROVIDERS: PCP Internal Medicine; Referring Provider Internal Medicine; Visit Provider Anesthesiology | DX: M46.1 Sacroiliitis, not elsewhere classified (principal); M53.3 Sacrococcygeal disorders, not elsewhere classified | CPT/HCPCS: 99202 ==

== ENCOUNTER 2025-02-05 09:38 | Outpatient (AMB) | payer MEDICAID, SELFPAY ==
[2025-02-05 09:41] VITALS: BP 136/86; PULSE 71; RESP 16; O2SAT 93; BMI 33.0
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
== END 2025-02-05 09:56 | disposition home or self-care (01) ==
LOC: HO.PMC 09:39
PROVIDERS: PCP Internal Medicine; Visit Provider Anesthesiology
DX: M46.1 Sacroiliitis, not elsewhere classified (principal); M53.3 Sacrococcygeal disorders, not elsewhere classified; M51.26 Other intervertebral disc displacement, lumbar region; G89.29 Other chronic pain
CPT/HCPCS: 99213

== ENCOUNTER → 2025-02-05 09:38 | Outpatient (BNVA) | payer MEDICAID, SELFPAY | PROVIDERS: PCP Internal Medicine; Visit Provider Anesthesiology | DX: M46.1 Sacroiliitis, not elsewhere classified (principal); M53.3 Sacrococcygeal disorders, not elsewhere classified; M51.26 Other intervertebral disc displacement, lumbar region; G89.29 Other chronic pain | CPT/HCPCS: 99212 ==